=== PATIENT | male | born 1955 | race Two or more races ===

== ENCOUNTER 2017-12-23 07:29 | Outpatient (CLI) | payer OTHER | END 2017-12-23 08:39 | disposition home or self-care (01) | LOC: NUCLEAR 07:29 | DX: J45.909 Unspecified asthma, uncomplicated (principal); R07.89 Other chest pain; R94.31 Abnormal electrocardiogram [ECG] [EKG] | CPT/HCPCS: 78452; 93017; A9500 ==

== ENCOUNTER → 2018-06-27 | Outpatient (CLI) | payer OTHER | END | disposition home or self-care (01) | LOC: NUCLEAR 07:36 | DX: I87.2 Venous insufficiency (chronic) (peripheral) (principal); D89.0 Polyclonal hypergammaglobulinemia ==

== ENCOUNTER 2018-11-30 06:53 | Outpatient (CLI) | payer OTHER | END 2018-11-30 07:05 | disposition home or self-care (01) | LOC: LAB 06:53 | DX: E03.8 Other specified hypothyroidism (principal); D50.8 Other iron deficiency anemias; E78.2 Mixed hyperlipidemia; I11.9 Hypertensive heart disease without heart failure; E56.8 Deficiency of other vitamins; N39.0 Urinary tract infection, site not specified; Z12.11 Encounter for screening for malignant neoplasm of colon; E55.9 Vitamin D deficiency, unspecified; E11.9 Type 2 diabetes mellitus without complications; R80.8 Other proteinuria; K92.1 Melena ==